=== PATIENT | female | born 1970 | race Caucasian/White ===

== ENCOUNTER 2016-10-27 12:14 | Emergency (ER) | payer BC ==
--- NOTE | 2016-10-31 08:56 | ER ---
ADMIT: 10/27/2016 RM/LOC: ER [facility] MR#: [id number] [address] [place], [place] [id number] BRISEIDA NOYOLA [address] [address] Emergency Room Report SEX: F AGE: 46 : 1970 DATE: 10/27/2016 ADDENDUM: CHIEF COMPLAINT: Abdominal pain and diarrhea. HISTORY OF PRESENT ILLNESS: This is a 46-year-old female, who developed diarrhea just starting at 5 this morning. She said she has had extreme left lower quadrant cramps with it, so came into the ER because of the pain. CMP is normal. CBC; her white count is 3.6, her hemoglobin 13.3, platelets are 217. Urine is clear. No signs of dehydration or infection. I did give her Toradol here in the emergency room. She said it did help the pain a little bit, feels okay going home. She is being discharged home. Having her drink fluids, take Tylenol or Motrin for pain. Follow up with her primary care physician if worsens. ROMAN Wyman / Evelio Hartley MD / [email or web address] JOB #: [id number] CC: Evelio Hartley MD, Attending Physician Giancarlo Hilario MD, Family Physician
== END 2016-10-27 13:30 | disposition home or self-care (01) ==
LOC: ER 12:14
DX: R10.32 Left lower quadrant pain (principal); F17.210 Nicotine dependence, cigarettes, uncomplicated; F32.9 Major depressive disorder, single episode, unspecified; M32.9 Systemic lupus erythematosus, unspecified; Z88.1 Allergy status to other antibiotic agents